=== PATIENT | female | born 1965 | race Caucasian/White ===

== ENCOUNTER 2021-12-15 09:33 | Day surgery (SDC) | payer BC, MEDICARE ==
[2021-12-15] VITALS (10 sets, daily range): BP systolic 111–133; BP diastolic 70–100
[~2021-12-15] VITALS: Ht 165.1 cm; Wt 83.8 kg
[2021-12-15] MEDS ORDERED: normal saline 1,000 ML IV SCH (10:00)
[2021-12-15] MEDS ORDERED: diphenhydrAMINE 25mg capsule PO PRN (10:00)
[2021-12-15] MEDS ORDERED: LORazepam 0.5 MG tablet PO PRN (10:00)
[2021-12-15] MEDS ORDERED: NAPR-996 PO (10:07)
[2021-12-15] MEDS ORDERED: FLEC100T35 PO (10:07)
[2021-12-15] MEDS ORDERED: HYDR-3968 PO (10:10)
[2021-12-15] MEDS ORDERED: CALC-977 (10:10)
[2021-12-15] MEDS ORDERED: ASPI-1265 PO (10:15)
[2021-12-15] MEDS ORDERED: ESTR1VAG VG (10:15)
[2021-12-15 10:48] LABS: BASOPHILS % (AUTO) 0.6 % (0-1); EOSINOPHILS # (AUTO) 0.1 X10'3 (0-0.9); EOSINOPHILS % (AUTO) 2.7 % (0-6); HEMATOCRIT 38.8 % (35.0-45.0); LYMPHOCYTES # (AUTO) 1.4 X10'3 (1.1-4.8); LYMPHOCYTES % (AUTO) 24.6 % (21-51); MEAN CORPUSCULAR HEMOGLOBIN 29.2 PG (27.0-31.0); MEAN CORPUSCULAR HGB CONC 33.4 g/dL (33.0-36.5); MEAN CORPUSCULAR VOLUME 87.2 FL (78-98); MEAN PLATELET VOLUME 8.6 FL (7.4-10.4); MONOCYTES # (AUTO) 0.4 X10'3 (0-0.9); MONOCYTES % (AUTO) 6.6 % (2-12); NEUTROPHILS # (AUTO) 3.6 X10'3 (1.8-7.7); NEUTROPHILS % (AUTO) 65.5 % (42-75); PLATELET COUNT 235 X10'3 (140-440); RED BLOOD COUNT 4.45 X10'6 (4.20-5.60); WHITE BLOOD COUNT 5.6 X10'3 (4.5-11.0)
[2021-12-15 11:01] LABS: ALBUMIN 3.8 G/DL (3.4-5.0); ANION GAP 7 (8-16); BLOOD UREA NITROGEN 23 MG/DL (7-18); BUN/CREATININE RATIO 33.8 (6.6-38.0); CHLORIDE 106 MMOL/L (99-107); CREATININE 0.68 MG/DL (0.40-0.90); GLUCOSE 92 MG/DL (70-104); MAGNESIUM 2.2 MG/DL (1.5-2.4); POTASSIUM 4.2 MMOL/L (3.5-5.1); SODIUM 140 MMOL/L (135-145); TOTAL CARBON DIOXIDE 27.1 MMOL/L (24-32); eGFR 89 ML/MIN
[2021-12-15] MEDS ORDERED: nitroGLYCERIN-Tridil 50MG/D5W 250 ML IV ONE ×2 (12:14→12:20)
[2021-12-15] MEDS ORDERED: LIDOcaine 1% 30ml preserv. free vial ONE (12:14)
[2021-12-15] MEDS ORDERED: heparin 1,000unit/ml 10ml vial 10 ML ONE (12:14)
[2021-12-15] MEDS ORDERED: verapamil 2.5 mg/ml inj IV ONE (12:21)
[2021-12-15] MEDS ORDERED: midazolam 1 mg/ML 2ml injection ONE ×2 (12:45→13:05)
[2021-12-15] MEDS ORDERED: fentaNYL/PF 50MCG/1 ML 2ML syringe ONE (13:05)
[2021-12-15] MEDS ORDERED: ondansetron/PF 4mg/2ml inj IV PRN (13:20)
[2021-12-15] MEDS ORDERED: HYDROcodone/acetaminophen 10/325mg tab PO PRN (13:20)
[2021-12-15] MEDS ORDERED: HYDROcodone/acetaminophen 5mg/325mg tablet PO PRN (13:20)
[2021-12-15] MEDS ORDERED: proCHLORperazine 10 MG/2 ml inj IV PRN (13:20)
[2021-12-15] MEDS ORDERED: OXAZEpam 15mg capsule PO PRN (13:20)
== END 2021-12-15 17:25 | disposition home or self-care (01) ==
LOC: SSTAY O 09:33
PROVIDERS: ATTEND Internal Medicine Cardiovascular Disease
DX: R94.39 Abnormal result of other cardiovascular function study (principal); R07.89 Other chest pain; I47.1 Supraventricular tachycardia; I48.0 Paroxysmal atrial fibrillation; M19.90 Unspecified osteoarthritis, unspecified site; G43.909 Migraine, unspecified, not intractable, without status migrainosus; Z88.5 Allergy status to narcotic agent; Z79.899 Other long term (current) drug therapy; Z79.82 Long term (current) use of aspirin; Z96.651 Presence of right artificial knee joint; Z90.710 Acquired absence of both cervix and uterus; Z98.890 Other specified postprocedural states; Z72.89 Other problems related to lifestyle; Z82.49 Family history of ischemic heart disease and other diseases of the circulatory system
CPT/HCPCS: 36415; 80048; 83735; 85025; 85610; 93005; 93458; 99152; 99153; C1769; C1894; J1644; J2250; J3010; J3490; Q0163; A4620; A5120; A6258